=== PATIENT | female | born 1990 | race Caucasian/White ===

== ENCOUNTER → 2016-12-08 | Outpatient (CLI) | payer OTHER ==
--- NOTE | 2016-12-08 15:07 | REP ---
LEFT WRIST SERIES, FOUR VIEWS: There is no evidence of an acute fracture, dislocation or intrinsic bone disease. The joint spaces appear unremarkable. IMPRESSION: No fracture or dislocation. Signed by Endy Baez MD 12/08/2016 04:24 P
== END ==
LOC: M WUC 10:56
PROVIDERS: ATTEND Physician Assistant
DX: S63.512A Sprain of carpal joint of left wrist, initial encounter (principal); W18.30XA Fall on same level, unspecified, initial encounter; Y92.009 Unspecified place in unspecified non-institutional (private) residence as the place of occurrence of the external cause

== ENCOUNTER → 2022-04-02 | Outpatient (CLI) | payer OTHER | LOC: M PLAIMG 10:28 | PROVIDERS: ATTEND Physician Assistant | DX: M25.571 Pain in right ankle and joints of right foot (principal) ==